=== PATIENT | male | born 1935 | race Caucasian/White ===

== ENCOUNTER 2023-08-02 20:01 | Inpatient (IN) | payer MEDICARE, SELFPAY ==
[2023-08-02 15:59] LABS: % Basophils 0.5 % (0-2); % Eosinophils 2.9 % (0-6); % Immature Granulocytes 0.2 % (0-0.5); % Lymphocytes 12.7 % (20.5-51.1); % Monocytes 10.5 % (1.7-9.3); % Neutrophils 73.2 % (42.2-75.2); Absolute Eosinophils 0.2 10^3/uL (0-0.7); Absolute Lymphocytes 0.8 10^3/uL (1.2-3.4); Absolute Monocytes 0.7 10^3/uL (0.1-0.6); Absolute Neutrophils 4.8 10^3/uL (1.4-6.5); Hematocrit 35.4 % (39.0-52.0); Hemoglobin 11.7 g/dL (13.0-18.0); Mean Corp Hgb Conc. 33.1 g/dL (33.0-37.0); Mean Corpuscular Hgb 35.1 pg (27.0-31.0); Mean Corpuscular Volume 106.3 fL (80.0-94.0); Mean Platelet Volume 11.6 fL (7.4-10.4); Nucleated Red Blood Cells % 0 % (-); Platelet Count 113 10^3/uL (130-400); Red Blood Cell Count 3.33 10^6/uL (4.70-6.10); Red Cell Dist. Width 14.5 % (11.5-14.5); White Blood Cell Count 6.6 10^3/uL (4.8-10.8)
[2023-08-02 16:06] LABS: ALT (SGPT) 19 U/L (0-50); AST (SGOT) 28 U/L (17-59); Albumin 4.1 g/dl (3.5-5.0); Alkaline Phosphatase 79 U/L (38-126); Blood Urea Nitrogen 29 mg/dl (9-20); Calcium 9.3 mg/dl (8.4-10.2); Carbon Dioxide 28 mmol/L (22-30); Chloride 99 mmol/L (98-107); Glucose 138 mg/dl (70-99); Potassium 3.7 mmol/L (3.5-5.1); Sodium 137 mmol/L (135-145); Total Bilirubin 1.2 mg/dl (0.2-1.3); Total Protein 6.9 g/dl (6.3-8.2); eGFR 59.26
[2023-08-02 16:24] LABS: NT-proBNP 13300 pg/ml; Troponin I 0.075 ng/ml
--- NOTE | 2023-08-02 16:56 | ED.GENMED ---
History of Present Illness
General
Chief Complaint: Breathing Problem
Source: patient
Exam Limitations: none
Time Seen by Provider: 08/02/23 16:44
Travel History
Have you had any contact with someone who has COVID-19?: No
Do you have any symptoms of coronavirus? Fever > 100 degrees, chills, cough, shortness of breath, sore throat, loss of taste or smell, muscle aches, or headache?: No
History of Present Illness
History of Present Illness:
See MDM
Past History
Past History
ED Past Medical History: CAD, CHF, HTN and Other (Dementia)
Phy Exam
Physical Exam
Physical Exam:
See MDM
Scores
Heart Failure Risk
Heart Failure Risk Score: Yes
History of Stroke or TIA: No
History of intubation for respiratory distress: No
Heart rate on ED arrival >/= 110: No
SaO2 <90% on arrival on room air: No
HR >/=110 during 3min walk test (or too ill to perform test): Yes
ECG has acute ischemic changes: Yes
Urea >/=12mmol/L (BUN 33.6mg/dL): No
Serum CO2>/=35mmol/L: No
Troponin I or T elevated to HI Level (0.4mg/dL): No
NT-proBNP >/=5,000ng/L (5,000pg/ml): Yes
HF Risk Score: 5
Admission Status: VERY HIGH RISK 39.8% Consider admission to hospital
Course
Orders/Labs/Results
Orders:
Orders
08/02/23 15:31
Electrocardiogram (*1) Urgent
Reason for Study: Shortness of Breath
EKG- Treatment ONCE
CXR2 [CR Chest - 2 Views ] Urgent
Comment:
Reason For Exam: sob
08/02/23 15:41
Complete Blood Count/With Diff Urgent
Comprehensive Metabolic Panel Urgent
NT-proBNP Urgent
Troponin I Urgent
08/02/23 16:55
Aspirin Chewable [Low Strength Aspirin] 243 mg PO NOW STA
Furosemide [Lasix] 80 mg IV NOW STA
Lorazepam [Ativan] 1 mg IV NOW STA
Abnormal Lab Results
08/02/23
15:41
RBC 3.33 L 10^6/uL
(4.70-6.10)
Hgb 11.7 L g/dL
(13.0-18.0)
Hct 35.4 L %
(39.0-52.0)
MCV 106.3 H fL
(80.0-94.0)
MCH 35.1 H pg
(27.0-31.0)
Plt Count 113 L 10^3/uL
(130-400)
MPV 11.6 H fL
(7.4-10.4)
Absolute Lymphs (auto) 0.8 L 10^3/uL
(1.2-3.4)
Absolute Monos (auto) 0.7 H 10^3/uL
(0.1-0.6)
Lymphocytes % 12.7 L %
(20.5-51.1)
Monocytes % 10.5 H %
(1.7-9.3)
BUN 29 H mg/dl
(9-20)
Glucose 138 H mg/dl
(70-99)
Troponin I 0.075 H* ng/ml
08/02/23 15:41
08/02/23 15:41
Vital Signs
Initial and Last Documented VS:
Initial Vital Signs
Temp Pulse Resp Pulse Ox
98.0 F 83 16 96
08/02/23 15:28 08/02/23 15:28 08/02/23 15:28 08/02/23 15:28
Last Documented Vital Signs
Temp Pulse Resp Pulse Ox
98.0 F 83 16 96
08/02/23 15:28 08/02/23 15:28 08/02/23 15:28 08/02/23 15:28
MDM/Problems Addressed
Differential Diagnosis Includes:
HPI and MDM Narrative:
87-year-old male presenting with shortness of breath. Patient is denying any symptoms but family stating that he has dementia. Patient does appear mildly tachypneic. They indicate that he has a history of CHF and his daily dose of Lasix was
doubled to 80 mg daily over the past week. Family concern for persistent shortness of breath and persistent weight gain.
On exam, patient does have pitting edema in both legs. He has mild tachypnea. Crackles noted at bases.
Blood work was done prior to my evaluation. Patient brought back when he was noted to have an elevated troponin and BNP. He has a history of coronary artery disease with 5 stents. He took 1 baby aspirin today. He denies chest pain. Will give 3
more baby aspirin. Will start IV Lasix and admit.
Physical exam
General: weak and frail
HEENT: protecting airway
Neck: appears supple
CV: No evidence of cyanosis.. Regular rate and rhythm
Resp: No accessory muscle use. Crackles at bases
Abd: Non-distended
Extremities: +2 pitting edema bilateral lower extremities
Neuro: alert
Psych: Anxious
Skin: Intact
Problems Addressed including Acute and Chronic Conditions affecting care:
1. CHF exacerbation
Acuity: acute
Prognosis: unstable
Details: Will give IV Lasix. Given failure of outpatient therapy, will admit
Updates
Given elevated troponin, patient given aspirin. He denies chest pain
Will admit for IV Lasix given pulmonary edema
Differential Diagnosis (but not limited to): Pneumonia, CHF exacerbation, viral syndrome
Testing considered: D-dimer
Drug therapy (if applicable): OTC meds, please see d/c instruction regarding Rx drugs
Amount and/or Complexity of Data Reviewed
Clinical info obtained from: Patient
External data reviewed: N/A
Labs I independently reviewed (but not limited to): Elevated troponin and BNP
Radiology: X-ray independently reviewed: Chest x-ray shows evidence of pulmonary edema
Pulse Ox: not hypoxic
EKG independently reviewed: Sinus rhythm, left axis, no STEMI, nonspecific ST abnormality
[employer] Testing: Sinus rhythm
Critical Care: The high probability of a clinically significant, sudden or life threatening deterioration of the cardiopulmonary system(s) required my full and direct attention, intervention and personal management. The aggregate critical care time
was 33 minutes. This time is in addition to time spent performing reported procedures but includes the following:
[x] Data Review and interpretation
[x] Patient assessment and monitoring of vital signs
[x] Documentation
[x] Medication orders and management
Risk of Complication:
Social Determinants of health: Good social support
Discussed with other providers: Hospitalist
Escalation of Care includes Admit/Obs: Given the pulmonary edema and CHF exacerbation, will admit for IV Lasix
Occasional wrong word or 'sound a like' substitutions may have occurred due to the inherent limitations of voice recognition software. Read the chart carefully and recognize, using context, where substitutions have occurred.
*Critical Care Note
Total Time (30-74mins, 75-104mins- exclusive of procedures): 33 min
ED Attending Note
-
Portions of this chart may have been created with voice recognition software.� Occasional wrong word or��sound alike� substitutions may have occurred due to the inherent limitations of voice recognition software.
Discharge Plan
Departure
Patient Disposition: Admit
Date of Disposition: 08/02/23
Time of Disposition: 17:01
Admit to: Telemetry
Presentation/result/management discussed w/ accepting MD/DO: Hospitalist
Discharge Problem:
Pulmonary edema, Acute exacerbation of CHF (congestive heart failure)
Interventions
Interventions:
*ED COVID-19 Vaccine History Last Done: 08/02/23 15:28
Discharge Date and Time
Print Language: MALAGASY
[2023-08-02] MEDS: ATIVAN 1 MG IV (17:07)
[2023-08-02] MEDS: LASIX 80 MG IV (17:07)
[2023-08-02] MEDS: LOW STRENGTH ASPIRIN 243 MG PO (17:08)
[2023-08-02 17:09] VITALS: BP 89/79
--- NOTE | 2023-08-02 17:52 | HPS.HSE ---
Addendum entered and electronically signed by Ajay Davis MD 08/03/23 07:55:
Allergies
Allergy/AdvReac Type Severity Reaction Status Date / Time
No Known Allergies Allergy Verified 08/02/23 15:30
Home Medications
alprazolam 0.25 mg tablet 0.25 mg PO Q8HPRN PRN anxiety 08/02/23
aspirin 81 mg tablet,delayed release 81 mg PO DAILY 08/02/23
atorvastatin 40 mg tablet 40 mg PO HS 08/02/23
carvedilol 3.125 mg tablet 3.125 mg PO BID 08/02/23
cholecalciferol (vitamin D3) 50 mcg (2,000 unit) tablet 50 mcg PO DAILY 08/02/23
clopidogrel 75 mg tablet 75 mg PO DAILY 08/02/23
escitalopram oxalate 20 mg tablet 20 mg PO DAILY 08/02/23
ferrous sulfate 325 mg (65 mg iron) tablet (iron) 325 mg PO DAILY 08/02/23
finasteride 5 mg tablet 5 mg PO DAILY 08/02/23
fluticasone propionate 50 mcg/actuation nasal spray,suspension 1 spray intranasal DAILY 08/02/23
furosemide 40 mg tablet 40 mg PO DAILY 08/02/23
lisinopril 2.5 mg tablet 2.5 mg PO DAILY 08/02/23
loratadine 10 mg tablet (Claritin) 10 mg PO DAILY 08/02/23
mirtazapine 45 mg tablet 45 mg PO HS 08/02/23
pantoprazole 40 mg tablet,delayed release 40 mg PO DAILY 08/02/23
peg 400-propylene glycol (PF) 0.4 %-0.3 % eye drops in a dropperette (Systane (PF)) 2 drp BOTH EYES DAILY 08/02/23
tamsulosin 0.4 mg capsule 0.4 mg PO HS 08/02/23
Original Note:
Family Physician
-
Family Physician: Arsh Cifuentes
Chief Complaint
-
LE edema
History of Present Illness
87 male past medical history of CAD status post stent chronic cardiomyopathy is presenting from home with shortness of breath and lower extremity edema. Per patient spouse patient with severe lower extremity edema which has been worsening recently.
Also complaining of shortness of breath with exertion at home. Recently saw director of employer services outpatient [facility] and his Lasix dose was increased. Patient has been making many trips to the bathroom however unclear if with increased
urinary output. Per spouse patient with early onset of dementia. Patient denies any chest pain. Per spouse patient with chronic hypotension and being followed with [facility]. Last hospitalization was in March of this year for
congestive heart failure exacerbation. Also complaining of worsening of lower extremity edema. Also complaining of periorbital pruritus. No drainage.
Medical History
Past Medical History
Past Medical History: Reports Other
Additional Past Medical History:
CAD status post 5 stents
Ischemic cardiomyopathy
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
BPH
Chronic hypotension
Early onset dementia with behavioral disturbances
Mood disorder
Hyperlipidemia
Past Surgical History: Reports Other
Additional Past Surgical History:
Coronary artery stent x 5
AICD implantation
Social History
Tobacco: Non-smoker
Alcohol: None
Personal:
Living: With Family
Family History
Family History: Not pertinent
Allergies / Home Medications
Allergies reflects when Allergies were last updated in [facility].
Home Medications with original date entered in [facility]
Allergy/Medication List:
Medications on admission are unable to be verified or confirmed at this time.
Review of Systems
-
Unable to obtain full review of systems at this time due to: Dementia
History Source: Family
Physical Exam
Vital Signs
Vital Signs
Temp Pulse Resp Pulse Ox
98.0 F 88 16 96
08/02/23 15:28 08/02/23 17:07 08/02/23 15:28 08/02/23 15:28
Physical Exam
General: No Apparent Distress and Cachectic
HEENT: NormoCephalic, Moist mucous membranes and Atraumatic
Respiratory: Rhonchi
Cardiac: S1/S2 and Regular Rhythm; No Murmur or Rub
GI: Soft, Non Tender, Non Distended and Normal Bowel Sounds; No Organomegaly
Rectal: Deferred by Provider
Musculoskeletal: No Cyanosis, Edema, Left Lower Extremity and Edema, Right Lower Extremity
Skin: No Rash
Neuro: Awake, No Motor Deficits and Nonfocal/grossly intact
Psych: Calm and Apparent Dementia
Laboratory Results
-
08/02/23 15:41
08/02/23 15:41
Laboratory Results
Total Bilirubin 1.2 mg/dl (0.2-1.3) 08/02/23 15:41
AST 28 U/L (17-59) 08/02/23 15:41
ALT 19 U/L (0-50) 08/02/23 15:41
Alkaline Phosphatase 79 U/L (38-126) 08/02/23 15:41
Troponin I 0.075 ng/ml H* 08/02/23 15:41
Impression/Plan
-
#Acute on chronic systolic heart failure exacerbation
# Pulmonary edema mild
#Ischemic cardiomyopathy EF of 20% status post AICD
#Elevated troponin
Start patient on 40 mg of IV Lasix twice daily if blood pressure can tolerate
May require milrinone infusion as with chronic hypotension
Continue with aspirin and Plavix
Check echocardiogram
Obtain records outpatient
Trend troponin
Monitor on telemetry
Daily I's and O's. Strict weights
Cardiology evaluation
#CAD status post stents
Continue with antiplatelet agents aspirin and Plavix
Trend troponin
#BPH
Continue with Flomax and finasteride once med rec completed
#Dementia with mild behavioral disturbances
Continue with Remeron. Pending med rec
Continue to reorient
#Mood disorder
Continue with SSRIs. Pending med rec
Due to prophylaxis�heparin subcu
Full code discussed with spouse and daughter at bedside in detail. family has not decided about CODE STATUS, recommended family meeting to discuss patient wishes.
I spent a total of 78 minutes with the patient or on the floor. More than 50% of this time involved counseling and coordination of care.
[2023-08-02 18:00] VITALS: BP 99/70
--- NOTE | 2023-08-02 19:04 | PHANOTE ---
08/02/2023, [employer], spoke to pt.'s spouse to obtain pt.'s med. history; per spouse, pt. is taking Pantoprazole 40 mg daily but could not find in pharmacy fill data or [facility] records; pt. is also taking Finasteride 5 mg daily and Furosemide 40 mg
daily; however, they have not been filled for awhile.
[2023-08-02 19:40] VITALS: BP 92/70
[2023-08-02 20:00] VITALS: BP 101/68
[2023-08-02 21:00] VITALS: BP 115/66
[2023-08-02] MEDS: HEPARIN 5000 UNITS SC (22:40)
[2023-08-02 23:25] VITALS: BP 106/75
[2023-08-03] VITALS (54 sets, daily range): BP systolic 60–134; BP diastolic 29–108; BMI 20.1
[2023-08-03 04:39] LABS: Troponin I 0.088 ng/ml
[2023-08-03 06:37] LABS: Blood Urea Nitrogen 31 mg/dl (9-20); Calcium 9.2 mg/dl (8.4-10.2); Carbon Dioxide 26 mmol/L (22-30); Chloride 102 mmol/L (98-107); Glucose 75 mg/dl (70-99); HDL Cholesterol 42 mg/dl; LDL Cholesterol, Calculated 30 mg/dl; Magnesium 1.8 mg/dl (1.6-2.3); Potassium 3.6 mmol/L (3.5-5.1); Sodium 135 mmol/L (135-145); Total Cholesterol 83 mg/dl (50-199); Triglyceride 58 mg/dl (10-149); Very Low Density Lipoprotein 11 mg/dl (0-30); eGFR 59.26
[2023-08-03] MEDS: HEPARIN 5000 UNITS SC ×2 (08:48→21:10)
[2023-08-03] MEDS: PLAVIX 75 MG PO (08:48)
[2023-08-03] MEDS: LASIX 40 MG IV (08:48)
[2023-08-03] MEDS: COREG 3.125 MG PO (09:09)
[2023-08-03] MEDS: VITAMIN D3 (cholecalciferol) 50 MCG PO (09:09)
[2023-08-03] MEDS: LEXAPRO 20 MG PO (09:09)
[2023-08-03] MEDS: PROTONIX 40 MG PO (09:09)
[2023-08-03] MEDS: FEOSOL 325 MG PO (09:09)
[2023-08-03] MEDS: CLARITIN 10 MG PO (09:09)
[2023-08-03] MEDS: ASPIR LOW (ENTERIC COATED) 81 MG PO (09:09)
[2023-08-03] MEDS: PROSCAR PO (09:10)
[2023-08-03 09:28] LABS: Troponin I 0.086 ng/ml
--- NOTE | 2023-08-03 10:34 | CON.CAR ---
Addendum entered and electronically signed by Sarath Carl MD 08/03/23 12:42:
Patient seen and examined in collaboration with PRODUCTION TESTER; agree with below.
-Patient with medical history as outlined below, including chronic HFrEF (20%) and significant dementia.
-Continue Lasix 40 mg IV twice daily.
-Will obtain an echocardiogram.
-forecast analyst.
-Obtain previous Cardiology records from his outside primary [facility].
Original Note:
Consultation
Consultation Request
Date/Time Consultation Requested: 08/02/2023 20:45
Date/Time Consultation Performed: 08/02/2023 10:00
Requesting Provider: Dr. Davis
Performing Provider: NUBIA Reed for Dr. Carl
Reason for Consultation: Acute on chronic HFrEF
Medical History
-
Chief Complaint: Shortness of breath
History of Present Illness:
Arsh Harrell is an 87-year-old male (known to [facility]), with coronary artery disease, HFrEF, dementia, dyslipidemia, and Medtr[employer] ICD who presented to the emergency department with a chief complaint of shortness of breath. He was
experiencing dyspnea on exertion. This HPI is limited in the setting of his significant dementia. He was frequently asking for his and to go for a walk during this consultation. He is tachycardic on exam and appears orthoptic but denies. He
denies chest pain.
Records been requested from his cardiology group. He does not know the name of his bench technician.
Past Medical History
Past Medical History: CAD, CHF and Hypercholesterolemia
Social History
Tobacco: Non-Smoker
Alcohol: None
Drug: None
Personal:
Living: With Family
Employment: Retired
Family History
Family History: Unable to Obtain
Allergies / Home Medications
Allergy/AdvReac Type Severity Reaction Status Date / Time
No Known Allergies Allergy Verified 08/02/23 15:30
�Medication �Instructions �Recorded �Confirmed �Type
alprazolam 0.25 mg tablet 0.25 mg PO Q8HPRN PRN anxiety 08/02/23 08/02/23 History
aspirin 81 mg tablet,delayed 81 mg PO DAILY 08/02/23 08/02/23 History
release
atorvastatin 40 mg tablet 40 mg PO HS 08/02/23 08/02/23 History
carvedilol 3.125 mg tablet 3.125 mg PO BID 08/02/23 08/02/23 History
cholecalciferol (vitamin D3) 50 50 mcg PO DAILY 08/02/23 08/02/23 History
mcg (2,000 unit) tablet
clopidogrel 75 mg tablet 75 mg PO DAILY 08/02/23 08/02/23 History
escitalopram oxalate 20 mg tablet 20 mg PO DAILY 08/02/23 08/02/23 History
ferrous sulfate 325 mg (65 mg 325 mg PO DAILY 08/02/23 08/02/23 History
iron) tablet (iron)
finasteride 5 mg tablet 5 mg PO DAILY 08/02/23 08/03/23 History
fluticasone propionate 50 1 spray intranasal DAILY 08/02/23 08/02/23 History
mcg/actuation nasal
spray,suspension
furosemide 40 mg tablet 40 mg PO DAILY 08/02/23 08/03/23 History
lisinopril 2.5 mg tablet 2.5 mg PO DAILY 08/02/23 08/02/23 History
loratadine 10 mg tablet (Claritin) 10 mg PO DAILY 08/02/23 08/02/23 History
mirtazapine 45 mg tablet 45 mg PO HS 08/02/23 08/02/23 History
pantoprazole 40 mg tablet,delayed 40 mg PO DAILY 08/02/23 08/03/23 History
release
peg 400-propylene glycol (PF) 0.4 2 drp BOTH EYES DAILY 08/02/23 08/02/23 History
%-0.3 % eye drops in a dropperette
(Systane (PF))
tamsulosin 0.4 mg capsule 0.4 mg PO HS 08/02/23 08/02/23 History
Physical Exam
Vital Signs
Temp Pulse Resp BP Pulse Ox
97.7 F 110 22 134/73 98
08/03/23 08:44 08/03/23 09:09 08/03/23 08:44 08/03/23 09:09 08/03/23 08:44
Lab Results
08/02/23 15:41
08/03/23 05:31
Troponin I 0.086 ng/ml H* 08/03/23 08:56
Ong-K-Ssilhijfhnf Pept 99724 pg/ml 08/02/23 15:41
Impression / Plan
-
HFrEF, acute on chronic
Cardiomyopathy type unknown, records requested
-Volume overloaded on exam, diuresis with furosemide 40 mg IV twice daily
-GDMT as tolerated
-NADIA/ARB: Lisinopril 2.5
-Beta-reba: Carvedilol 3.125 mg twice daily
-SGLT2: Can consider, will check with family about UTIs
-MRA: Can consider
-ICD: Implanted (Medtronic)
-Trend daily weight, I/O, and BMP with diuresis
-Heart failure education will need to be in the presence of family as the patient has dementia
Tachycardia, follow
Abnormal troponin, likely nonischemic myocardial injury in the setting of acute on chronic HFrEF
-Troponin remains flat
-Denies chest pain
Coronary artery disease
-Stable without chest pain
-On DAPT, location and timing of stenting unknown, records requested
-On beta-reba and high intensity statin
HLD, LDL below goal on atorvastatin, continue
Dementia, significantly forgetful on exam
Data Reviewed
-
EKG: Report Reviewed by me (Sinus rhythm with sinus arrhythmia, PVC, LVH, rate 93; sinus tachycardia with PVCs, lateral ST abnormality, rate 102)
Radiology: Report Reviewed by me (CXR: Mild congestive heart failure. Asymmetric elevation of the right diaphragm versus subpulmonic effusion. Probable minor compressive atelectasis in the medial right lung base.)
Labs: Labs Reviewed by me
Old Records: Requested
--- NOTE | 2023-08-03 10:46 | W.PN.HOSP.TC ---
Today's Communication/Plan
-
IV Lasix
Await echocardiogram
Cardiology recs
Monitor urinary output
Monitor heart rate
Assessment / Plan
Assessment / Plan
#Acute on chronic systolic heart failure exacerbation
# Pulmonary edema mild
#Ischemic cardiomyopathy EF of 20% status post AICD
#Elevated troponin
Start patient on 40 mg of IV Lasix twice daily if blood pressure can tolerate
May require milrinone infusion as with chronic hypotension
Continue with aspirin and Plavix
Check echocardiogram
Obtain records outpatient
Trend troponin
Monitor on telemetry
Daily I's and O's. Strict weights
Cardiology evaluation
#Tachycardia ? sinus.
Uptitrate coreg if bp can tolerate it
Continue monitor on telemetry.
cards following
#CAD status post stents
Continue with antiplatelet agents aspirin and Plavix
Trend troponin
#BPH
Continue with Flomax and finasteride
#Dementia with mild behavioral disturbances
Continue with Remeron.
Continue to reorient
# Thrombocytopenia likely chronic
Trend CBC
#Mood disorder
Continue with SSRIs.
Due to prophylaxis�heparin subcu
Full code discussed with spouse and daughter at bedside in detail.
Anticipated Discharge: > 48 hours
Subjective/Interval History
-
Date of Service: August 03, 2023
States passing increasing amount of urine
On tele with tachycardia
Objective Data
-
Labs:
Laboratory Results
08/03/23
05:31
Sodium 135
Potassium 3.6
Chloride 102
Carbon Dioxide 26
BUN 31 H
Creatinine 1.2
Glucose 75
Calcium 9.2
Vital Signs:
Vital Signs
Temp Pulse Resp BP Pulse Ox
97.7 F 110 22 134/73 98
0507/24 08:44 08/03/23 09:09 08/03/23 08:44 08/03/23 09:09 08/03/23 08:44
I&O
08/02/23 08/03/23 08/04/23
06:59 06:59 06:59
Output Total 575 / 575
Balance -575 / -575
Physical Exam
-
General: Well Developed and No Apparent Distress
HEENT: Normocephalic, Atraumatic and Moist Mucous Membranes
Respiratory: Rhonchi and Decreased Breath Sounds
Cardiac: S1/S2 and Tachycardic; Negative Murmur, Rub or Gallop
GI: Soft, Nontender, Nondistended and Normal Bowel Sounds; Negative Organomegaly
Rectal: Deferred by Provider
Musculoskeletal: No Clubbing, No Cyanosis, No Edema, Edema, Right Lower Extrem and Edema, Left Lower Extrem
Skin: Negative Rash
Neuro: Awake and Nonfocal/Grossly Intact
Psych: Calm and Apparent Dementia
[2023-08-03] MEDS: LEVOPHED 250 IV (14:51)
--- NOTE | 2023-08-03 14:55 | PTCARENOTE ---
Pt hypotensive (64/42). Pt has no complaints, mentation unchanged. Hospitalist made aware and will start levophed infusion. HR 80s - sinus.
[2023-08-03] MEDS: XANAX 0.25 MG PO ×2 (15:34→23:28)
[2023-08-03] MEDS: LASIX IV (16:10)
--- NOTE | 2023-08-03 16:31 | W.PN.UPDATE ---
Addendum entered and electronically signed by Ajay Davis MD 08/03/23 18:22:
Discussed with gynecological assistant and cardiology. Discussed with patient spouse, daughter and son at bedside. Once again we have re-iterated patient poor prognosis of cardiogenic shock severe aortic stenosis valve, valvular disease and and pressor
requirement. Family understand prognosis and agreed to change CODE STATUS to DO NOT RESUSCITATE DO NOT INTUBATE. Family wants to continue with the pressors for now.
Original Note:
Update Note
Progress Note Update
Patient with severe hypotension. Asymptomatic. However with dementia and does a poor historian. Currently sleeping in bed. Patient was started on Levophed and systolic blood pressure 100s. Mild tachycardia. Discussed with cardiology with
hypotension new and highly concern for cardiogenic shock. Cardiology recommending switching to dobutamine. Official echo report pending. Outpatient cardiology records has requested and pending. Discussed with spouse about patient poor prognosis.
Spouse understand however not ready to make decision and has not talked with her children yet. Remains full code prognosis severely poor. Will transfer to ICU for now. d/w with nursing.
[2023-08-03 16:51] LABS: Troponin I 0.087 ng/ml
--- NOTE | 2023-08-03 17:33 | CON.INTV ---
Consultation
Consultation Request
Date/Time Consultation Requested: 08/02
Date/Time Consultation Performed: 08/02
Reason for Consultation: Critical care
Medical History
-
History of Present Illness:
History obtained from at bedside, children at bedside and some history from patient. Patient's primary care is here at [facility]. 87-year-old male with history of dementia, cardiomyopathy, coronary disease. Patient apparently has
seen cardiology regularly. Evaluation for valvular intervention was considered but patient was told not amenable to intervention? Cannot confirm. Patient has had profound fatigue, sleepiness, lack of energy along with significant shortness of
breath and presyncopal symptoms with simple activity at home, increased lower extremity swelling. He has had history of falls. He recently saw his physician and was told to seek medical care. He recently moved into the [facility] and was
brought to [facility] where upon arrival afebrile, pulse 83, breathing at 16, 96%. Patient was found to be hypotensive in the ER requiring pressors. Stat echocardiogram was obtained. We are asked to help from critical care standpoint
Patient presently is denying chest pain, shortness of breath. He does appear to be agitated, wanting to go to the bathroom. He does have baseline dementia. Most history obtained from family at the bedside. According to son, patient has had slow
deterioration since heart attack 8 years ago. states poor appetite, weight loss over the last few months
.
PMH: History of coronary disease with multiple stents, major heart attack 8 years ago. History of multiple TIAs/strokes, chronic heart failure EF 20% as of March 2023, dementia with behavioral disturbance, hyperlipidemia, chronic hypotension.
History of ICD implantation.
Past Medical History
Past Medical History: None (See above)
Past Surgical History: None (See above)
Social History
Tobacco: Non-smoker
Alcohol: None
Drug: None
Personal:
Living: With Family
Employment: Retired
Family History
Family History: Reviewed & Not Pertinent (3 children healthy. Family history negative for lung cancer, blood clots, lung disease)
Allergies / Home Medications
Allergies
Allergy/AdvReac Type Severity Reaction Status Date / Time
No Known Allergies Allergy Verified 08/02/23 15:30
Home Medications
�Medication �Instructions �Recorded �Confirmed �Last Taken �Type
alprazolam 0.25 mg tablet 0.25 mg PO Q8HPRN PRN anxiety 08/02/23 08/02/23 08/01/23 History
aspirin 81 mg tablet,delayed 81 mg PO DAILY Blood Clot 08/02/23 08/02/23 08/02/23 History
release Prevention/Tx
atorvastatin 40 mg tablet 40 mg PO HS High Cholesterol 08/02/23 08/02/23 08/01/23 History
carvedilol 3.125 mg tablet 3.125 mg PO BID Blood Pressure 08/02/23 08/02/23 08/02/23 History
cholecalciferol (vitamin D3) 50 50 mcg PO DAILY Supplement 08/02/23 08/02/23 08/02/23 History
mcg (2,000 unit) tablet
clopidogrel 75 mg tablet 75 mg PO DAILY Blood Clot 08/02/23 08/02/23 08/02/23 History
Prevention/Tx
escitalopram oxalate 20 mg tablet 20 mg PO DAILY depression/anxiety 08/02/23 08/02/23 08/02/23 History
ferrous sulfate 325 mg (65 mg 325 mg PO DAILY Supplement 08/02/23 08/02/23 08/02/23 History
iron) tablet (iron)
finasteride 5 mg tablet 5 mg PO DAILY Urinary Issue 08/02/23 08/03/23 08/02/23 History
fluticasone propionate 50 1 spray intranasal DAILY Allergies 08/02/23 08/02/23 08/01/23 History
mcg/actuation nasal
spray,suspension
furosemide 40 mg tablet 40 mg PO DAILY Fluid 08/02/23 08/03/23 08/02/23 History
Retention/Swelling
lisinopril 2.5 mg tablet 2.5 mg PO DAILY Blood Pressure 08/02/23 08/02/23 08/02/23 History
loratadine 10 mg tablet (Claritin) 10 mg PO DAILY Allergies 08/02/23 08/02/23 08/02/23 History
mirtazapine 45 mg tablet 45 mg PO HS depression/sleep 08/02/23 08/02/23 08/01/23 History
pantoprazole 40 mg tablet,delayed 40 mg PO DAILY Gastrointestinal 08/02/23 08/03/23 08/02/23 History
release Issue
peg 400-propylene glycol (PF) 0.4 2 drp BOTH EYES DAILY Constipation 08/02/23 08/02/23 08/01/23 History
%-0.3 % eye drops in a dropperette
(Systane (PF))
tamsulosin 0.4 mg capsule 0.4 mg PO HS Urinary Issue 08/02/23 08/02/23 08/01/23 History
Review of Systems
-
All other systems: Negative unless noted
Vitals / Labs / Diagnostic Testing
Vital Signs
Temp Pulse Resp BP Pulse Ox
97.7 F 125 31 60/29 90
08/03/23 08:44 08/03/23 15:45 08/03/23 15:30 08/03/23 15:45 08/03/23 15:45
Lab Data
08/02/23 15:41
08/03/23 05:31
Diagnostic Testing:
Physical Exam
-
HEENT: Normocephalic and Anicteric
Cardiovascular: S1/S2, Regular Rhythm, Murmur (2/6 systolic murmur) and Peripheral Edema (tr)
Respiratory: Wheeze (n), Rales (Mild at the base, decreased right base), Rhonchi (n) and Non-Labored Respirations
GI: Soft, Non Distended and Non Tender
Neurology: Awake, Alert and No Motor Deficits (Moving all extremities)
Skin: Other (No clubbing, there is no cyanosis. There is poor capillary refill, extremities mildly cool)
General: Other (Agitated at times, wants to go to the bathroom)
Assessment
-
87-year-old male with history of dementia, ischemic cardiomyopathy with multiple stents in the past, presents with progressive shortness of breath, fatigue, lower extremity edema. Patient was apparently seen by his investigation specialist and primary
physician within the last week and was told to seek medical attention. Patient with cardiogenic shock, severe aortic stenosis, severe pulm hypertension, now on dobutamine. We are asked to help from critical care standpoint
Acute congestive heart failure, systolic dysfunction
Chronic heart failure
Hypotension, suspected cardiogenic shock
Ischemic cardiomyopathy, EF 15% per echo
ICD in place
Elevated troponin
Severe aortic stenosis, severe MR, severe TR
PA pressure 90
History of falls
Conditions present prior to admission
History of coronary disease with multiple stents
On aspirin and Plavix
History of dementia
Plan/recommendations
At this time, patient is critically ill. Concerned about his severe valvular disease with severe ventricular dysfunction, severe pulm hypertension. Reviewed at length the physiology of his cardiac disease with multiple family members. Reviewed
that this is not sustainable and will eventually lead to a cardiac arrest.
Moving forward
I reviewed at length with cardiology. They will review with family regarding echocardiogram findings
Would strongly suggest transition to comfort, hospice evaluation
Family is aware of critical illness and I encouraged him to discuss amongst themselves
had history of TAVR. Family asking why he cannot aortic valve be fixed. Reviewed physiology and discussed that this is not possible given his underlying cardiac disease
Cardiology will discuss with the family
Depending on family decision, may require Armstrong catheter, central access
Not sure that inotropic therapy will help given severe valvular disease
Reviewed with family members at length
Reviewed with ED staff briefly
Reviewed with cardiology and primary service
High risk situation, extremely poor prognosis
Reviewed with critical care nursing
TCCT 35 min
--- NOTE | 2023-08-03 17:46 | W.PN.UPDATE ---
Update Note
Progress Note Update
Went back to the ER to speak with the patient's family who were at his bedside (, daughter, and son).
-Updated them on the patient's severe cardiomyopathy (EF 15%, with severe aortic stenosis, severe mitral regurgitation, severe tricuspid regurgitation, and severe pulmonary hypertension with PASP of 85-90 mmHg).
-The patient has end-stage cardiomyopathy; comfort measures/hospice are recommended from a cardiac standpoint.
-This was discussed in detail with patient and his family.
-Discussed with hospitalist and career technical counselor; the patient wants to be comfortable at home.
-Hospitalist to discuss with family comfort measures/hospice.
[2023-08-03] MEDS: FLOMAX 0.400000000000000022 MG PO (21:09)
[2023-08-03] MEDS: REMERON 45 MG PO (21:50)
[2023-08-03] MEDS: LIPITOR 40 MG PO (21:50)
--- NOTE | 2023-08-03 23:29 | PTCARENOTE ---
08/02-
received pt from ED, assessments completed. patient aggitated, restless and very upset that he is not home, patient trying to get OOB, legs over side of bed, bed alarm placed on for safety. patient continues to try and get oob, very aggitated, prn
ativan given with no avail.
extremely tachycardic and sob, try to re direct, however patient becomes confused and wants to call his family to discharge him now.
will continue to try and reorient patient
[2023-08-04] VITALS (34 sets, daily range): BP systolic 76–145; BP diastolic 45–98; BMI 19.8
[2023-08-04 04:36] LABS: % Basophils 0.6 % (0-2); % Immature Granulocytes 0.2 % (0-0.5); % Lymphocytes 12.5 % (20.5-51.1); % Neutrophils 71.7 % (42.2-75.2); Absolute Eosinophils 0.1 10^3/uL (0-0.7); Absolute Lymphocytes 0.8 10^3/uL (1.2-3.4); Absolute Monocytes 0.9 10^3/uL (0.1-0.6); Absolute Neutrophils 4.5 10^3/uL (1.4-6.5); Hematocrit 33.3 % (39.0-52.0); Hemoglobin 11.4 g/dL (13.0-18.0); Mean Corp Hgb Conc. 34.2 g/dL (33.0-37.0); Mean Corpuscular Hgb 34.7 pg (27.0-31.0); Mean Corpuscular Volume 101.2 fL (80.0-94.0); Mean Platelet Volume 11.4 fL (7.4-10.4); Nucleated Red Blood Cells % 0 % (-); Platelet Count 115 10^3/uL (130-400); Red Blood Cell Count 3.29 10^6/uL (4.70-6.10); Red Cell Dist. Width 14.2 % (11.5-14.5); White Blood Cell Count 6.2 10^3/uL (4.8-10.8)
[2023-08-04 04:56] LABS: Blood Urea Nitrogen 39 mg/dl (9-20); Calcium 8.9 mg/dl (8.4-10.2); Carbon Dioxide 25 mmol/L (22-30); Chloride 100 mmol/L (98-107); Estimated Creatinine Clearance 31 ml/min; Glucose 123 mg/dl (70-99); Potassium 3.7 mmol/L (3.5-5.1); Sodium 132 mmol/L (135-145); eGFR 49.25
--- NOTE | 2023-08-04 06:51 | W.PN.INTV ---
Today's Communication / Plan
Recommendations
Continue with Lasix therapy
Wean off pressors as able
Remains high risk situation
Await family decision regarding comfort/hospice
Hospice has been consulted
Assessment
-
87-year-old male with history of dementia, ischemic cardiomyopathy with multiple stents in the past, presents with progressive shortness of breath, fatigue, lower extremity edema. Patient was apparently seen by his banjo repairer and primary
physician within the last week and was told to seek medical attention. Patient with cardiogenic shock, severe aortic stenosis, severe pulm hypertension, now on dobutamine. We are asked to help from critical care standpoint
Acute congestive heart failure, systolic dysfunction
Chronic heart failure
Hypotension, suspected cardiogenic shock
Ischemic cardiomyopathy, EF 15% per echo
ICD in place
Elevated troponin
Severe aortic stenosis, severe MR, severe TR
PA pressure 90
History of falls
Conditions present prior to admission
History of coronary disease with multiple stents
On aspirin and Plavix
History of dementia
Plan/recommendations
At this time, patient is critically ill. Concerned about his severe valvular disease with severe ventricular dysfunction, severe pulm hypertension.
Reviewed at length the physiology of his cardiac disease with multiple family members.
Reviewed that this is not sustainable and will eventually lead to a cardiac arrest.
Family is considering comfort measures, awaiting final decision
Moving forward
Remains on Lasix therapy, negative fluid status noted
Wean norepinephrine as able
Family has decided to consider comfort, hospice. Hospice has been consulted
Daughter had many questions about when patient can go home
Had many questions about continue current medications
I did review with daughter that according to pharmacy investigation, medications have not been refilled since March, only 30-day supply of Lasix given at that time
Not sure whether patient has been getting his medications as prescribed as outpatient
Appreciate cardiology input
High risk situation, extremely poor prognosis
Reviewed with critical care nursing, pharmacy, case management, respiratory care
Updated daughter at length by phone 08/03
TCCT 31 min
Subjective Dataa
Subjective Data
Date of Service:
Date of Service: August 04, 2023
Subjective:
Patient appears to be comfortable at this time. Has been on norepinephrine through the night. Extreme agitation throughout the night, tried to climb out of bed, wanted to go home.
Objective Data
Data Reviewed
Vital Signs / I&O / Oxygen:
Vital Signs
Temp Pulse Resp BP Pulse Ox
97.4 F 90 18 99/58 97
08/04/23 04:00 08/04/23 06:21 08/04/23 06:21 08/04/23 06:21 08/04/23 03:00
Intake and Output
08/02/23 08/03/23 08/04/23
06:59 06:59 06:59
Intake Total 120.0 / 120.0
Output Total 575 / 575 695 / 695
Balance -575 / -575 -575.0 / -575.0
SaO2 97
Physical Exam
General: Comfortable
HEENT: Normocephalic
Cardiovascular: S1-S2, Regular Rhythm, Murmur (2/6) and Peripheral Edema (tr)
Respiratory: Wheeze (n), Crackles (Mild bibasilar), Rhonchi (n) and Non-Labored Respirations
GI: Soft, Non Distended and Non Tender
Neurology: Awake, Alert and No Motor Deficits (Moves all extremities)
Skin: Cyanosis (n), Jaundice (n) and Rash (n)
Labs/Micro/Reports
Lab Data
08/04/23 04:25
08/04/23 04:25
[2023-08-04] MEDS: PROTONIX 40 MG PO (08:21)
[2023-08-04] MEDS: FEOSOL 325 MG PO (08:21)
[2023-08-04] MEDS: ASPIR LOW (ENTERIC COATED) 81 MG PO (08:21)
[2023-08-04] MEDS: PROSCAR 5 MG PO (08:21)
[2023-08-04] MEDS: LEXAPRO 20 MG PO (08:21)
[2023-08-04] MEDS: VITAMIN D3 (cholecalciferol) 50 MCG PO (08:21)
[2023-08-04] MEDS: PLAVIX 75 MG PO (08:22)
[2023-08-04] MEDS: HEPARIN 5000 UNITS SC (08:22)
[2023-08-04] MEDS: LASIX 40 MG IV (08:22)
[2023-08-04] MEDS: CLARITIN 10 MG PO (08:28)
--- NOTE | 2023-08-04 08:30 | PTCARENOTE ---
Assumed care of pt at 0715 following shift report. Pt received on Levophed at 2mcg/min to keep SBP >90. Pt asleep- woken to name for assessment and care. Oriented to person and that he is in a hospital. Disoriented to time and situation.
Repetitively stating that he wants to 'go home' and that his family is coming to pick him up. Physical assessment as documented. Pt using urinal w/ assistance to void in frequent small amounts. Phone call received from pt's -updated on pt's
present condition and events overnight. reports she and pt's daughter will be in to visit later this morning. Pt assisted in placing a phone call to his . Comfort care and frequent reorientation provided to pt. Bed exit alarm in use. Will
continue to monitor.
--- NOTE | 2023-08-04 09:49 | W.PN.CD ---
Today's Communication / Plan
-
-Patient with end-stage cardiomyopathy/cardiogenic shock.
-Poor candidate for any aggressive measures; has significant dementia.
-Recommend comfort measures/hospice; patient keeps stating he wants to go home.
-Can try to wean off of Levophed and placed on midodrine.
-Currently on furosemide 40 mg IV twice daily, but likely will not be able to tolerate much longer due to hypotension.
Impression / Plan
-
Acute on chronic ICM/HFrEF (EF12-20%)/severe /severe MR/severe TR:
-Patient with end-stage cardiomyopathy/cardiogenic shock.
-Poor candidate for any aggressive measures; has significant dementia.
-Recommend comfort measures/hospice; patient keeps stating he wants to go home.
-Can try to wean off of Levophed and placed on midodrine.
-Currently on furosemide 40 mg IV twice daily, but likely will not be able to tolerate much longer due to hypotension; will decrease to once daily for now.
-GDMT limited by hypotension.
-ICD: Implanted ([employer])
Tachycardia -secondary to underlying cardiomyopathy/medical condition.
-Unable to tolerate rate-controlling medications due to hypotension
Abnormal troponin, likely nonischemic myocardial injury in the setting of acute on chronic HFrEF
-Troponin remains flat
-Denies chest pain
Coronary artery disease
-Stable without chest pain
-On DAPT, location and timing of stenting unknown, records requested
-On beta-reba and high intensity statin
HLD, LDL below goal on atorvastatin, continue
Dementia, significantly forgetful on exam
Physical Exam
Vital Signs/Labs
Vital Signs
Temp Pulse Resp BP Pulse Ox
97.1 F 135 18 90/75 97
08/04/23 07:45 08/04/23 08:22 08/04/23 06:21 08/04/23 08:22 05/08/24 03:00
08/03/23 08/04/23 08/05/23
06:59 06:59 06:59
Actual Weight 60 kg 55.6 kg
08/04/23 04:25
08/04/23 04:25
Magnesium 1.8 mg/dl (1.6-2.3) 08/03/23 05:31
Triglycerides 58 mg/dl (10-149) 08/03/23 05:31
LDL Cholesterol, Calc 30 mg/dl 08/03/23 05:31
VLDL Cholesterol, Calc 11 mg/dl (0-30) 08/03/23 05:31
HDL Cholesterol 42 mg/dl 08/03/23 05:31
08/02/23
15:41
[id number] Pept [id number]
LAB Results
08/02/23 08/03/23 08/03/23
15:41 03:34 08:56
Troponin I 0.075 H* 0.088 H* 0.086 H*
08/03/23
16:12
Troponin I 0.087 H*
Physical Exam
Constitutional: No acute distress and Comfortable
EENT: Anicteric
Cardiovascular: Rhythm & rate is regular (Ectopy present), Pedal edema is absent, Systolic murmur present (4/6) and S1S2 is normal
Respiratory: Respiratory effort normal
GI: Soft
Neuro/Psych: Other (Awake, but significant dementia)
Other: Skin (Warm, dry)
Data Reviewed
-
Date of Service: August 04, 2023
EKG: Tracing Personally Visualized and interpreted (Telemetry: Sinus rhythm with frequent PACs/PVCs)
Echo: Report Reviewed by me (EF 15-20%, severe AAS, severe MR, severe TR)
Medical Tests (PFT, Pathology etc): Discussed with Nurse
Labs: Labs Reviewed by me
Critical Care Time (in minutes): 33
--- NOTE | 2023-08-04 10:06 | HOSPNOTE ---
Spouse and daughter are coming in and I will meet them to discuss hospice at 11am. More details to follow.
--- NOTE | 2023-08-04 11:35 | CM ---
Addendum entered by Naldo Pastrana 08/04/23 13:09:
Discharge order noted. CM met with pt and pt's spouse, pt's daughter and pt's 2 granddaughters at bedside. Both pt and his family are aware, expressed their agreement with discharge. Emotional support offered and provided. IMM reviewed, placed on
chart, pt has a copy.
D/C plan: home with hospice and family support. Family to transport.
Addendum entered by Naldo Pastrana 08/04/23 12:41:
Per referral management liaison Milana, she met with pt and his family, agree with hospice care, pt is accepted for hospice care at home and family will drive pt home at discharge.
D/c plan: home with hospice and family support. Family to transport home.
Original Note:
CM following re: discharge planning.
Discussed in Rounds, reviewed pt's chart, met with pt.
Pt is an 87 year old male, admitted with primary dx of Acute congestive heart failure, systolic dysfunction, chronic heart failure. per Rounds meeting, comfort care with hospice care as a most appropriate level of care has been discussed with pt and
his family. Hospice consult noted. Referral made to hospice.
Pt reports he lives with spouse in a 2SH, 2 steps to enter, has 3 supportive children. Pt described himself as independent in all areas [employer], uses a cane and a walker as needed, family helps as needed. No VN or SNF history.
PCP: Arsh Cifuentes
Pharmacy: [facility]
D/c plan: hospice will evaluate the pt.
CM will follow with discharge plan updates as hospitalization progresses
--- NOTE | 2023-08-04 12:28 | PTCARENOTE ---
Levophed gtt off at 0930. SBP remains >90. Pt assisted OOB to BSC multiple times. HR into 110-120's w/ increase in amount of ectopy noted. Pt continues to deny c/o pain or SOB. Remains on RA w/ POx 96%. Refused provided breakfast 'I told you I
don't want anything to eat'. No additional changes from previous assessment findings. Family (, dtr, son) here at present discussing pt w/ flooring helper
--- NOTE | 2023-08-04 12:48 | W.PN.HOSP.TC ---
Today's Communication/Plan
-
DC home on hospice
Prognosis severely guarded
Assessment / Plan
Assessment / Plan
# Cardiogenic shock
# acute on chronic systolic heart failure exacerbation
# Valvular disease with severe aortic stenosis, severe mitral patient had severe tricuspid vegetation
# Pulmonary edema mild
#Ischemic cardiomyopathy EF of 20% status post AICD
#Elevated troponin
Started on Lasix twice daily but due to hypotension not able to tolerate it.
Required Levophed infusion overnight.
Echocardiogram noted and discussed with family and cardiology and insurance territory manager
Goal-directed medical therapy severe limited due to hypotension
Continue with aspirin and Plavix
Reviewed outpatient records -scanned into [facility]
Off pressors. Midodrine as needed
Monitor on telemetry
Daily I's and O's. Strict weights
Cardiology evaluation
#Tachycardia ? sinus.
Uptitrate coreg if bp can tolerate it
Continue monitor on telemetry.
cards following
#CAD status post stents
Continue with antiplatelet agents aspirin and Plavix
Trend troponin
#BPH
Continue with Flomax and finasteride
#Dementia with mild behavioral disturbances
Continue with Remeron.
Continue to reorient
# Thrombocytopenia likely chronic
#Mood disorder
Continue with SSRIs.
DVT prophylaxis�heparin subcu
DNR/DNI- Hospice consulted. Family discussed with hospice with plan to DC home on hospice. ICD will be discontinued as outpatient.
Discussed with insurance territory manager
Remains with poor prognosis
More than 30 minutes spent in discharge including
Final examination of the patient
Summarizing hospital stay
Instructions for continuing care to all relevant caregivers
Preparation of discharge records, prescriptions, and referral forms
Total time spent (in minutes): 52
Anticipated Discharge: Today
Subjective/Interval History
-
Date of Service: August 04, 2023
require levophed overnight
wants to go home
Objective Data
-
Labs:
Laboratory Results
08/04/23
04:25
WBC 6.2
Hgb 11.4 L
Hct 33.3 L
Plt Count 115 L
Sodium 132 L
Potassium 3.7
Chloride 100
Carbon Dioxide 25
BUN 39 H
Creatinine 1.4 H
Glucose 123 H
Calcium 8.9
Vital Signs:
Vital Signs
Temp Pulse Resp BP Pulse Ox
96.8 F L 95 22 106/81 96
08/04/23 11:08 08/04/23 12:00 08/04/23 12:00 08/04/23 12:00 08/04/23 08:00
I&O
08/03/23 08/04/23 08/05/23
06:59 06:59 06:59
Intake Total 120.0 / 127.5 22.5 / 22.5
Output Total 575 / 575 695 / 745 200 / 200
Balance -575 / -575 -575.0 / -617.5 -177.5 / -177.5
Physical Exam
-
General: Cachectic
HEENT: Normocephalic, Atraumatic and Moist Mucous Membranes
Respiratory: Rhonchi and Decreased Breath Sounds
Cardiac: S1/S2, Rub and Tachycardic; Negative Gallop
GI: Soft, Nontender, Nondistended and Normal Bowel Sounds; Negative Organomegaly
Rectal: Deferred by Provider
Musculoskeletal: No Clubbing, No Cyanosis, No Edema, Edema, Right Lower Extrem and Edema, Left Lower Extrem
Skin: Negative Rash
Neuro: Awake and Nonfocal/Grossly Intact
Psych: Calm and Apparent Dementia
--- NOTE | 2023-08-04 12:55 | W.DCSUMMARY ---
Discharge Summary
Discharge Data
Date of Admission: 08/02/23
Date of Discharge: 08/04/23
-
Pending Results: No
Hospital Course
87 male past medical history of chronic systolic heart failure, ischemic cardiomyopathy EF of 20% status post AICD, valvular disease, CAD status post stents, BPH, dementia with behavioral disturbances, thrombocytopenia likely chronic, mood disorder
who is presented with acute shortness of breath and also with lower extremity edema. Patient was found to be in severe congestive heart failure exacerbation. Also note patient with chronic hypotension. Patient received IV Lasix. Patient with
hypotension and required Levophed administration. Patient underwent echocardiogram which showed Severely reduced left ventricular systolic function. Left ventricular ejection fraction is 15-20% by volumetric assessment. Stage III diastolic
dysfunction suggestive of restrictive filling pattern and increased filling pressures. Severe low output aortic stenosis. Severe mitral regurgitation. Severe tricuspid regurgitation. Estimated pulmonary artery pressure of 85-90 mmHg. Patient was
found to be in acute cardiogenic shock. Unable to tolerate any diuretics. Multiple conversation was held by myself, latin american studies professor and cash accountant as patient with end-stage and prognosis extremely poor. Patient was monitored in the medical ICU and
Levophed was weaned off. CODE STATUS was changed to DNR/DNI. Family agreed for hospice and hospice was consulted. Family to take patient home and thus midodrine to be ordered as needed till patient goes home and spend time with family.
[place] [facility] will be signed on. Patient be discharged home with hospice.
Discharge Plan
-
Patient Disposition: Home with Hospice
Discharge Diagnosis/Procedures: Cardiogenic shock
Acute on chronic systolic heart failure exacerbation
Severe valvular disease with aortic stenosis, mitral tricuspid vegetation
Nonischemic myocardial injury
Condition: Fair
Diet: As tolerated
Activity: With assistance and As tolerated
Driving Restrictions: No driving
Instructions: *PCP/Other Wood Carving Machine Operator Heart Failure Instructions
Referrals:
Arsh Cifuentes MD [Family Provider] - in less than 1 week
Prescriptions:
New
midodrine 5 mg tablet
5 mg PO TID PRN (Reason: SBP<90) Qty: 30 0RF
Continued
furosemide 40 mg Tablet
40 mg PO DAILY
Patient Comments:
08/02/2023, last filled on 04/06/2023 for a 30-day supply.
atorvastatin 40 mg Tablet
40 mg PO HS
clopidogrel 75 mg Tablet
75 mg PO DAILY
aspirin 81 mg Tablet,Delayed Release (Dr/Ec)
81 mg PO DAILY
alprazolam 0.25 mg Tablet
0.25 mg PO Q8HPRN PRN (Reason: anxiety)
tamsulosin 0.4 mg Capsule
0.4 mg PO HS
pantoprazole 40 mg Tablet,Delayed Release (Dr/Ec)
40 mg PO DAILY
ferrous sulfate [iron] 325 mg (65 mg iron) Tablet
325 mg PO DAILY
mirtazapine 45 mg Tablet
45 mg PO HS
fluticasone propionate 50 mcg/actuation [place],Suspension
1 spray INTRANASAL DAILY
finasteride 5 mg Tablet
5 mg PO DAILY
Patient Comments:
08/02/2023, last filled on 03/20/2023 for 90-day supply.
loratadine [Claritin] 10 mg Tablet
10 mg PO DAILY
escitalopram oxalate 20 mg Tablet
20 mg PO DAILY
Systane (PF) 0.4-0.3 % Dropperette
2 drp BOTH EYES DAILY
cholecalciferol (vitamin D3) 50 mcg (2,000 unit) Tablet
50 mcg PO DAILY
Discontinued
carvedilol 3.125 mg Tablet
3.125 mg PO BID
lisinopril 2.5 mg Tablet
2.5 mg PO DAILY
Discharge Orders:
Discharge Patient (As Directed); Ordered 08/04/23
Ordered By: Ajay Davis
Discharge Date and Time
Print Language: TANZANIAN
--- NOTE | 2023-08-04 12:59 | HOSPNOTE ---
Long meeting with family. They will honor the patient's wishes and bring patient home on hospice services. No equipment is needed at this time and the son will be driving patient home. The family is aware that they will be the primary support and
that the patient will no longer be coming back to the hospital. They are in agreement and understand the hospice philosophy. Case management and Attending aware. Updated floor RN.
--- NOTE | 2023-08-04 13:38 | PTCARENOTE ---
pt discharged to home with and children. no changes or complaints prior to discharge.
== END 2023-08-04 14:23 | disposition hospice, home (50) | DRG 291 ==
LOC: ICU 20:01
PROVIDERS: ADMITTING PHYSICIAN Hospitalist; CONSULT PHYSICIAN Internal Medicine Critical Care Medicine; EMERGENCY PHYSICIAN Student in an Organized Health Care Education/Training Program; FAMILY PHYSICIAN Internal Medicine; OTHER PHYSICIAN Internal Medicine
DX: I11.0 Hypertensive heart disease with heart failure (principal); I50.23 Acute on chronic systolic (congestive) heart failure; R57.0 Cardiogenic shock; F03.918 Unspecified dementia, unspecified severity, with other behavioral disturbance; F03.93 Unspecified dementia, unspecified severity, with mood disturbance; F03.94 Unspecified dementia, unspecified severity, with anxiety; I5A Non-ischemic myocardial injury (non-traumatic); I25.5 Ischemic cardiomyopathy; Z95.5 Presence of coronary angioplasty implant and graft; I25.10 Atherosclerotic heart disease of native coronary artery without angina pectoris; N40.0 Benign prostatic hyperplasia without lower urinary tract symptoms; D69.6 Thrombocytopenia, unspecified; F32.A Depression, unspecified; Z51.5 Encounter for palliative care; E78.00 Pure hypercholesterolemia, unspecified; Z66 Do not resuscitate
CPT/HCPCS: 71046; 80048; 80053; 80061; 83735; 83880; 84484; 85025; 93005; 93306; 96374; 96375; 99291